=== PATIENT | male | born 1960 | race Caucasian/White ===

== ENCOUNTER → 2023-08-27 13:15 | Outpatient (REF) | payer OTHER, SELFPAY ==
[2023-08-27 16:27] LABS: Folate 10.9 ng/ml (2.76-20); Vitamin B12 459 pg/ml (239-931)
== END ==
LOC: RAD 13:15
PROVIDERS: ATTENDING PHYSICIAN Emergency Medicine
DX: R09.89 Other specified symptoms and signs involving the circulatory and respiratory systems (principal); R20.9 Unspecified disturbances of skin sensation; Z87.891 Personal history of nicotine dependence; R29.898 Other symptoms and signs involving the musculoskeletal system; D75.89 Other specified diseases of blood and blood-forming organs
CPT/HCPCS: 36415; 72052; 76770; 82607; 82746; 84155; 84165; 93922; 93925

== ENCOUNTER → 2024-10-10 09:22 | Outpatient (REF) | payer MEDICARE, SELFPAY | LOC: RCS 09:22 | PROVIDERS: ATTENDING PHYSICIAN Internal Medicine Cardiovascular Disease; FAMILY PHYSICIAN Emergency Medicine | DX: I77.810 Thoracic aortic ectasia (principal) | CPT/HCPCS: 93306 ==